=== PATIENT | male | born 1945 ===

== ENCOUNTER 2021-11-08 11:26 | Outpatient (CLI) | payer OTHER | END 2021-11-08 11:48 | disposition home or self-care (01) | LOC: RAD 11:26 → EDBD 11:26 → RAD 11:48 | PROVIDERS: ATTEND Orthopaedic Surgery | DX: M25.561 Pain in right knee (principal); M25.562 Pain in left knee; M25.511 Pain in right shoulder; M25.512 Pain in left shoulder ==